=== PATIENT | male | born 1955 | race Caucasian/White ===

== ENCOUNTER 2023-11-16 11:23 | Inpatient (IN) ==
[2023-11-16] MEDS ORDERED: POTASSIUM CHLORIDE 20 MEQ TABLET PO PRN ×2 (11:43)
[2023-11-16] MEDS ORDERED: ACETAMINOPHEN 325 MG TABLET PO PRN (11:43)
[2023-11-16] MEDS ORDERED: MAGNESIUM SULFATE 2 GM/50 ML BAG IV PRN (11:43)
[2023-11-16] MEDS ORDERED: morphine 4 MG/ML VIAL IV PRN (11:43)
[2023-11-16] MEDS ORDERED: IPRATROPIUM/ALBUTEROL 3 ML AMPUL.NEB NEB PRN (11:43)
[2023-11-16] MEDS ORDERED: DEXTROSE 31 GM ORAL.SUSP PO PRN (11:43)
[2023-11-16] MEDS ORDERED: DEXTROSE 50% 50 ML VIAL IV PRN (11:43)
[2023-11-16] MEDS ORDERED: HYDROcodone/APAP 5/325MG TABLET PO PRN (11:43)
[2023-11-16] MEDS ORDERED: POLYETHYLENE GLYCOL 3350 17 GM PACKET PO PRN (11:43)
[2023-11-16] MEDS ORDERED: SENNOSIDES 1 TABLET PO PRN (11:43)
[2023-11-16] MEDS ORDERED: ONDANSETRON 4 MG/2 ML VIAL IV PRN (11:43)
[2023-11-16] MEDS ORDERED: POTASSIUM CHLORIDE 40 MEQ in DEXTROSE 5% IN WATER 500 ML IV PRN (11:43)
[2023-11-16] MEDS ORDERED: hydrALAZINE 20 MG/ML VIAL IV PRN (11:43)
[2023-11-16] MEDS: 0.9 % SODIUM CHLORIDE 10 ML SYRINGE IV SCH (15:03)
[2023-11-16] MEDS: metroNIDAZOLE 500 MG/100 ML BAG IV SCH (15:03)
[2023-11-16] MEDS: CEFEPIME 2 GM VIAL IV SCH (15:03)
[2023-11-16] MEDS ORDERED: PIPERACILLIN SODIUM/TAZOBACTAM 3.375 GM in DEXTROSE 5% IN WATER 100 ML IV SCH (15:45)
[2023-11-16] MEDS ORDERED: METOPROLOL TARTRATE 5 MG/5 ML VIAL IV PRN (15:52)
[2023-11-16] MEDS: NICOTINE 14 MG PATCH TOPICAL SCH (17:06)
[2023-11-16] MEDS: INSULIN LISPRO 1 UNIT/0.01 ML UNIT SQ SCH (17:11)
[2023-11-16 18:15] LABS: Blood Urea Nitrogen 31 mg/dL (8-23); Calcium 7.8 mg/dL (8.6-10.4); Carbon Dioxide 24 mmol/L (22-30); Chloride 99 mmol/L (96-108); Glomerular Filtration Rate 51; Glucose 214 mg/dL (70-105)
[2023-11-16] MEDS: DOCUSATE SODIUM 100 MG CAPSULE PO SCH (21:24)
[2023-11-17] MEDS: INSULIN LISPRO 1 UNIT/0.01 ML UNIT SQ SCH (01:21)
[2023-11-17 06:25] LABS: Basophils # (Auto) 0.08 K/mcL (0.00-0.30); Basophils % (Auto) 0.7 % (0.0-2.0); Eosinophils # (Auto) 0.09 K/mcL (0.00-0.70); Eosinophils % (Auto) 0.8 % (0.0-7.0); Hematocrit 36.8 % (40.1-51.0); Hemoglobin 11.5 g/dL (13.7-17.5); Lymphocytes # (Auto) 1.22 K/mcL (1.50-4.80); Lymphocytes % (Auto) 11.3 % (15.5-49.0); Mean Cell Volume 96.3 fL (80.0-100.0); Mean Corpuscular HGB Conc 31.3 g/dL (31.0-36.0); Mean Platelet Volume 10.8 fL (8.8-12.5); Monocytes # (Auto) 0.77 K/mcL (0.10-0.90); Monocytes % (Auto) 7.1 % (1.0-12.0); Neutrophils % (Auto) 79.7 % (38.0-78.0); Platelet Count 213 K/mcL (140-440); RBC 3.82 M/mcL (4.63-6.08); Red Cell Distribution Width 12.7 % (11.5-14.5); WBC 10.8 K/mcL (4.5-11.0)
[2023-11-17 06:32] LABS: ALT/SGPT 10 U/L (<40); AST/SGOT 24 U/L (<40); Albumin 2.2 gm/dL (3.2-5.2); Albumin/Globulin Ratio 0.8 (1.0-2.3); Alkaline Phosphatase 115 U/L (39-117); Bilirubin,Direct < 0.2 mg/dL (0-0.3); Bilirubin,Total 0.2 mg/dL (0.1-1.0); Blood Urea Nitrogen 30 mg/dL (8-23); Calcium 7.7 mg/dL (8.6-10.4); Carbon Dioxide 22 mmol/L (22-30); Chloride 103 mmol/L (96-108); Globulin 2.8 gm/dL (2.2-3.7); Glomerular Filtration Rate 51; Glucose 128 mg/dL (70-105); Lactate Dehydrogenase 115 U/L (135-225); Phosphorous 3.1 mg/dL (2.5-4.5); Triglycerides 99 mg/dL (<150); Uric Acid 6.4 mg/dL (2.5-8.0)
[2023-11-17 07:11] LABS: Estimated Average Glucose(eAG) 232 mg/dL; Hemoglobin A1C 9.7 % Hgb (4.0-6.0)
[2023-11-17] MEDS ORDERED: fentaNYL 100 MCG/2 ML VIAL ONE (09:00)
[2023-11-17] MEDS ORDERED: PROPOFOL 200 MG/20 ML VIAL IV ONE (09:00)
[2023-11-17] MEDS ORDERED: ONDANSETRON 4 MG/2 ML VIAL ONE (09:00)
[2023-11-17] MEDS ORDERED: ROCURONIUM 10 MG/ML ML IV ONE (09:00)
[2023-11-17] MEDS: 0.9 % SODIUM CHLORIDE 1,000 ML IV SCH (09:16)
[2023-11-17] MEDS ORDERED: IPRATROPIUM/ALBUTEROL 3 ML AMPUL.NEB NEB PRN (09:58)
[2023-11-17] MEDS ORDERED: fentaNYL 100 MCG/2 ML VIAL IV PRN (09:58)
[2023-11-17] MEDS ORDERED: SUGAMMADEX SODIUM 200 MG/2 ML VIAL IV ONE (10:14)
[2023-11-17] MEDS: LIDOCAINE 2% URO-JET 10 ML JEL.PF.APP UR ONE (10:22)
[2023-11-17] MEDS: PNEUMOCOCCAL 23-VAL P-SAC VAC 0.5 ML SYRINGE IM ONE (11:23)
[2023-11-17] MEDS: FLUZONE HD QS2023-24/PF 240 MCG/0.7 ML SYRINGE IM ONE (11:23)
[2023-11-18 06:50] LABS: ALT/SGPT 7 U/L (<40); AST/SGOT 27 U/L (<40); Albumin 2.3 gm/dL (3.2-5.2); Albumin/Globulin Ratio 0.8 (1.0-2.3); Alkaline Phosphatase 113 U/L (39-117); Bilirubin,Direct < 0.2 mg/dL (0-0.3); Bilirubin,Total 0.3 mg/dL (0.1-1.0); Blood Urea Nitrogen 29 mg/dL (8-23); Calcium 7.8 mg/dL (8.6-10.4); Carbon Dioxide 19 mmol/L (22-30); Chloride 105 mmol/L (96-108); Globulin 2.9 gm/dL (2.2-3.7); Glomerular Filtration Rate 56; Glucose 125 mg/dL (70-105); Lactate Dehydrogenase 230 U/L (135-225); Phosphorous 2.9 mg/dL (2.5-4.5); Triglycerides 50 mg/dL (<150); Uric Acid 5.7 mg/dL (2.5-8.0)
[2023-11-18 08:38] LABS: Basophils # (Auto) 0.11 K/mcL (0.00-0.30); Basophils % (Auto) 0.7 % (0.0-2.0); Eosinophils # (Auto) 0.12 K/mcL (0.00-0.70); Eosinophils % (Auto) 0.7 % (0.0-7.0); Hemoglobin 12.1 g/dL (13.7-17.5); Lymphocytes # (Auto) 0.99 K/mcL (1.50-4.80); Mean Cell Volume 100.3 fL (80.0-100.0); Mean Corpuscular HGB Conc 30.3 g/dL (31.0-36.0); Mean Platelet Volume 11.5 fL (8.8-12.5); Monocytes # (Auto) 0.86 K/mcL (0.10-0.90); Monocytes % (Auto) 5.2 % (1.0-12.0); Platelet Count 229 K/mcL (140-440); RBC 3.99 M/mcL (4.63-6.08); Red Cell Distribution Width 13.1 % (11.5-14.5); WBC 16.6 K/mcL (4.5-11.0)
[2023-11-18] MEDS: SODIUM BICARBONATE 650 MG TABLET PO SCH (08:42)
[2023-11-18] MEDS: cefTRIAXone 2 GM in DEXTROSE 5% IN WATER 50 ML IV SCH (09:45)
[2023-11-18] MEDS: metFORMIN 500 MG TAB.XL.24H PO SCH (11:35)
[2023-11-18 11:53] LABS: HDL Cholesterol 27 mg/dL (>40); LDL Cholesterol,Calculated 47 mg/dL (<100); Non-HDL Cholesterol 58 mg/dL (<130); Triglycerides 56 mg/dL (<150)
[2023-11-19 06:15] LABS: Basophils # (Auto) 0.11 K/mcL (0.00-0.30); Basophils % (Auto) 0.7 % (0.0-2.0); Eosinophils # (Auto) 0.19 K/mcL (0.00-0.70); Eosinophils % (Auto) 1.3 % (0.0-7.0); Hematocrit 36.7 % (40.1-51.0); Hemoglobin 11.8 g/dL (13.7-17.5); Lymphocytes # (Auto) 1.06 K/mcL (1.50-4.80); Lymphocytes % (Auto) 7.2 % (15.5-49.0); Mean Cell Volume 94.6 fL (80.0-100.0); Mean Corpuscular HGB Conc 32.2 g/dL (31.0-36.0); Mean Platelet Volume 10.4 fL (8.8-12.5); Monocytes % (Auto) 5.4 % (1.0-12.0); Neutrophils % (Auto) 84.9 % (38.0-78.0); Platelet Count 276 K/mcL (140-440); RBC 3.88 M/mcL (4.63-6.08); WBC 14.7 K/mcL (4.5-11.0)
[2023-11-19 06:35] LABS: Blood Urea Nitrogen 27 mg/dL (8-23); Calcium 7.7 mg/dL (8.6-10.4); Carbon Dioxide 23 mmol/L (22-30); Chloride 105 mmol/L (96-108); Glomerular Filtration Rate 56; Glucose 129 mg/dL (70-105)
[2023-11-19] MEDS: FLUZONE HD QS2023-24/PF 240 MCG/0.7 ML SYRINGE IM ONE (11:23)
[2023-11-19] MEDS: PNEUMOCOCCAL 23-VAL P-SAC VAC 0.5 ML SYRINGE IM ONE (11:25)
== END 2023-11-19 11:55 | DRG 853 ==
LOC: MEDSUR 12:59
PROVIDERS: ADMIT Internal Medicine; ATTEND Internal Medicine